=== PATIENT | female | born 1995 | race African-American/Black ===

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

== ENCOUNTER 2017-02-18 00:55 | Emergency (ER) | payer BC ==
[~2017-02-18] VITALS: Ht 152.4 cm; Wt 71.3 kg
[2017-02-18 01:05] VITALS: BP 112/67
[2017-02-18] MEDS ORDERED: ACETAMINOPHEN 500MG TABLET PO NR (03:00)
== END 2017-02-18 02:55 | disposition left against medical advice (07) ==
LOC: ER 00:55
DX: R10.9 Unspecified abdominal pain (principal); N94.6 Dysmenorrhea, unspecified
CPT/HCPCS: 81025; 99282

== ENCOUNTER 2024-07-04 12:36 | Emergency (ER) | payer BC, MEDICAID ==
[~2024-07-04] VITALS: Ht 149.9 cm; Wt 94.0 kg
[2024-07-04 12:56] VITALS: O2SAT 99
[2024-07-04 16:59] LABS: CLARITY URINE CLOUDY (CLEAR); COLOR URINE YELLOW (YELLOW); GLUCOSE URINE NEGATIVE (NEGATIVE); KETONES URINE 1+ (NEGATIVE); LEUKOCYTE ESTERASE URINE NEGATIVE (NEGATIVE); NITRITE URINE NEGATIVE (NEGATIVE); OCCULT BLOOD URINE NEGATIVE (NEGATIVE); PROTEIN URINE NEGATIVE (NEGATIVE); SPECIFIC GRAVITY URINE 1.014 (1.005-1.030); UROBILINOGEN URINE 0.2 E.U./dL (0.2-1.0)
[2024-07-04] MEDS: KETOROLAC 15MG/ML VIAL IM ONE (18:10)
[2024-07-04 18:42] LABS: RBC URINE NONE SEEN /hpf (0-2); WBC URINE NONE SEEN /hpf (0-2)
[2024-07-04 18:42] LABS: CHLORIDE 105 mEq/L (98-107); POTASSIUM 3.7 mEq/L (3.5-5.1); SODIUM 139 mEq/L (136-145)
[2024-07-04 18:43] LABS: BACTERIA URINE TRACE; SQUAMOUS EPITHELIAL CELL URINE FEW /lpf (RARE/1+)
[2024-07-04 18:44] LABS: CALCIUM 9.4 mg/dL (8.7-10.4); CARBON DIOXIDE 27 mEq/L (21-32)
[2024-07-04 18:49] LABS: CREATININE 0.8 mg/dL (0.6-1.0); GLUCOSE 100 mg/dL (70-105); UREA NITROGEN BLOOD 6 mg/dL (9-23)
[2024-07-04 18:56] LABS: BASOPHILS % 0.7 % (0.0-2.0); DIFFERENTIAL COMMENT 0; EOSINOPHILS % 2.7 % (0.0-5.0); HEMATOCRIT. 38.2 % (36.0-48.0); HEMOGLOBIN. 12.6 g/dL (12.0-16.0); LYMPHOCYTES % 30.5 % (20.0-50.0); MEAN CORPUSCULAR HEMOGLOBIN 25.6 pg (28.0-32.0); MEAN CORPUSCULAR HGB CONC 32.9 g/dL (31.0-37.0); MEAN CORPUSCULAR VOLUME 77.8 fL (81.0-99.0); MEAN PLATELET VOLUME 9.1 fl (7.4-10.4); MONOCYTES % 6.2 % (2.0-8.0); NEUTROPHILS % 59.9 % (40.0-76.0); PLATELET 266 x1000/uL (130-400); RED BLOOD CELL COUNT 4.91 mill/uL (4.2-5.4); RED CELL DISTRIBUTION WIDTH 17.4 % (11.6-14.6)
[2024-07-04 19:32] LABS: HCG SCREEN NEGATIVE
[2024-07-04] MEDS ORDERED: ONDA-239 PO (19:41)
[2024-07-04 20:02] VITALS: BP 109/64; PULSE 84; RESP 15; TEMP 36.83628; O2SAT 100
== END 2024-07-04 20:04 | disposition home or self-care (01) ==
LOC: ER 12:50
DX: N20.0 Calculus of kidney (principal)
CPT/HCPCS: 80048; 81003; 81025; 84703; 85025; 36415; 74176; 96372; 99285; J1885; Z7610